=== PATIENT | female | born 1980 | race Caucasian/White ===

== ENCOUNTER 2016-09-01 12:47 | Emergency (ER) | payer MEDICAID ==
[2016-09-01 12:52] VITALS: BP 129/86; PULSE 77; RESP 18; TEMP 98.2; O2SAT 96
--- NOTE | 2016-09-01 13:27 | EDPHY ---
H & P Stated Complaint: r upper dental prob for months r sided facial swelling Time Seen by Provider: 09/01/16 13:16 HPI/ROS: CHIEF COMPLAINT: Dental pain HISTORY OF PRESENT ILLNESS: Patient is a 36-year-old female who comes to the emergency department complaining of right upper dental pain and swelling in her cheek. This began about 3 days ago. She has a crown on that tooth. It is tender to percussion. Not tender to hot or cold. She denies trauma. No sinus congestion or fevers. REVIEW OF SYSTEMS: Constitutional: denies: chills, fever, recent illness, recent injury EENTM: See HPI Respiratory: denies: cough, shortness of breath Cardiac: denies: chest pain, irregular heart rate, lightheadedness, palpitations Gastrointestinal/Abdominal: denies: abdominal pain, diarrhea, nausea, vomiting, blood streaked stools Genitourinary: denies: dysuria, frequency, hematuria, pain Musculoskeletal: denies: joint pain, muscle pain Skin: denies: lesions, rash, jaundice, bruising Neurological: denies: headache, numbness, paresthesia, tingling, dizziness, weakness Hematologic/Lymphatic: denies: blood clots, easy bleeding, easy bruising Immunologic/allergic: denies: HIV/AIDS, transplant EXAM: GENERAL: Well-appearing, well-nourished and in no acute distress. HEAD: Atraumatic, normocephalic. EYES: Pupils equal round and reactive to light, extraocular movements intact, sclera anicteric, conjunctiva are normal. ENT: right upper dental pain, tenderness to percussion. See diagram TMs normal, nares patent, oropharynx clear without exudates. Moist mucous membranes. NECK: Normal range of motion, supple without lymphadenopathy or JVD. LUNGS: Breath sounds clear to auscultation bilaterally and equal. No wheezes rales or rhonchi. HEART: Regular rate and rhythm without murmurs, rubs or gallops. ABDOMEN: Soft, nontender, normoactive bowel sounds. No guarding, no rebound. No masses appreciated. BACK: No CVA tenderness, no spinal tenderness, step-offs or deformities EXTREMITIES: Normal range of motion, no pitting or edema. No clubbing or cyanosis. NEUROLOGICAL: Cranial nerves II through XII grossly intact. Normal speech, normal gait. 5/5 strength, normal movement in all extremities, normal sensation PSYCH: Normal mood, normal affect. SKIN: Warm, dry, normal turgor, no visible rashes or lesions. Source: Patient Exam Limitations: No limitations - Personal History LMP (Females 10-55): 15-21 Days Ago Current Tetanus/Diphtheria Vaccine: Yes - Medical/Surgical History Hx Asthma: No Hx Chronic Respiratory Disease: No Hx Diabetes: No Hx Cardiac Disease: No Hx Renal Disease: No Hx Cirrhosis: No Hx Alcoholism: No Hx HIV/AIDS: No Hx Splenectomy or Spleen Trauma: No Other PMH: denies - Family History Significant Family History: No pertinent family hx - Social History Smoking Status: Current every day smoker Alcohol Use: Sober Drug Use: None Constitutional: Initial Vital Signs Temperature (C) 36.8 C 09/01/16 12:49 Heart Rate 77 09/01/16 12:49 Respiratory Rate 18 09/01/16 12:49 Blood Pressure 129/86 H 09/01/16 12:49 O2 Sat (%) 96 09/01/16 12:49 O2 Delivery Mode Room Air Allergies/Adverse Reactions: No Known Allergies Allergy (Unverified 09/01/16 12:49) Home Medications: Medication Instructions Recorded Clindamycin 150 mg PO Q8 #30 cap 09/01/16 ED Images - Head Mouth: 1 - [place], tenderness to percussion Medical Decision Making ED Course/Re-evaluation: Patient has a dental infection. I will start her on antibiotics. I recommended nonnarcotic analgesics. The patient and family agree. They declined further workup or testing at this time. I will refer them to dentist. Differential Diagnosis: Partial list of the Differential diagnosis considered include but were not limited to; dental abscess, dental fracture, dental citlalli and although unlikely based on the history and physical exam, I also considered facial fracture, abscess, sinusitis, intracranial injury. I discussed these differential diagnoses and the plan with the patient as well as the usual and expected course. The patient understands that the diagnosis is provisional and that in medicine we are not always correct and that further workup is often warranted. Usual and customary warnings were given. All of the patient's questions were answered. The patient was instructed to return to the emergency department should the symptoms at all worsen or return, otherwise to followup with the physician as we discussed. Departure - Departure Disposition: Home, Routine, Self-Care Clinical Impression: Dental abscess Condition: Fair Instructions: Dental Abscess (ED) Referrals: [facility] [Outside] - As per Instructions [facility] [Outside] - As per Instructions [facility] [Outside] - As per Instructions Prescriptions: Clindamycin 150 mg PO Q8 #30 cap
== END 2016-09-01 13:40 | disposition home or self-care (01) ==
DX: K04.7 Periapical abscess without sinus (principal); F17.200 Nicotine dependence, unspecified, uncomplicated